=== PATIENT | female | born 1960 | race Caucasian/White ===

== ENCOUNTER 2025-07-15 10:46 | Emergency (ER) | payer SELFPAY ==
[2025-07-15 10:52] VITALS: BP 216/117; PULSE 125; RESP 16; TEMP 36.8; O2SAT 96
--- NOTE | 2025-07-15 11:15 | DI.RAD_ITS ---
Exam(s) XR KNEE RT 3V AP,LAT,SNEHAL EXAM: XR KNEE RT 3V AP,LAT,SNEHAL CLINICAL HISTORY: pain and swelling. TECHNIQUE: 2D digital imaging was performed of the right knee. Three views obtained. AP, lateral and PA tunnel views were obtained. COMPARISON: No exams were available for comparison FINDINGS: BONES: No acute fracture is present. No bony destructive lesion is seen. JOINTS: In the medial joint compartment, there is joint space narrowing and large osteophytes. There also large osteophytes and joint space narrowing in the patellofemoral joint. There is a small osteophyte seen at the lateral aspect of the tibial plateau. There is a moderate joint effusion present. SOFT TISSUE: Normal. IMPRESSION: 1. Moderate joint effusion. 2. Marked osteoarthritis of the knee. 3. There is no acute fracture or dislocation. DATA REPOSITORY: RADIATION DOSE DELIVERED:
[2025-07-15 11:53] VITALS: BP 227/112; PULSE 132; RESP 22; O2SAT 99
[2025-07-15 12:39] VITALS: BP 225/126; PULSE 119; RESP 22; O2SAT 100
--- NOTE | 2025-07-17 11:37 | ED.GENADUL_ITS ---
Discharge Plan Disposition Patient Disposition: Home Condition: Stable Discharge Details Clinical Impression: Effusion of knee, Arthritis, Alcohol withdrawal Primary Care Provider: None,None ED Provider: Nini Ryder Home Meds and New Rx's Prescriptions: New thiamine HCl (vitamin B1) 250 mg tablet 250 mg PO DAILY Qty: 90 0RF diclofenac sodium 1 % gel 2 g topical QID Qty: 100 0RF Rx Instructions: apply to single elbow, wrist or hand; for hand includes palm/fingers/back of hand prednisone 20 mg tablet 40 mg PO DAILY Qty: 10 0RF Discharge Instructions Instructions: Alcohol withdrawal, Swollen Joints (DC) Additional Instructions: Please take the prednisone as prescribed You may apply diclofenac gel I am concerned that you may be in alcohol withdrawal, I do recommend having a drink or you will need to take medicine so you do not go into delirium tremens If you are interested in cutting down on alcohol I recommend cutting down by 1 drink daily, do not ever stop drinking alcohol abruptly as this can kill you I recommend taking thiamine daily I recommend establishing with a primary care physician so that you can have regular care I am listing [facility] if you are interested in resources Referrals: [facility] [Outside] Discharge Data Discharge Date/Time-TO BE ENTERED AT DEPARTURE: 07/15/25 12:42 HPI General Date/Time Provider Initiated Documentation: 07/15/25 11:04 . HPI Narrative: This 64-year-old female presents for right knee pain. She has no primary care nor has she been seen by the healthcare provider for the last 20 years. She is states she drinks a couple times a week . Triage mention that blood pressure and heart rate were quite high.asked her regarding blood pressure history and alcohol history and she states she not have anything she would like to discuss. Denies any chest pain headache vision change. States she has a tremor and difficulty walking at times. Denies any hallucinations. Presents with daughter. Related Data Home Medications ?Medication ?Instructions ?Recorded ?Confirmed diclofenac sodium 1 % topical gel 2 g topical QID #100 grams 07/15/25 prednisone 20 mg tablet 40 mg (2 x 20 mg) PO DAILY # 10 tabs 07/15/25 thiamine HCl (vitamin B1) 250 mg 250 mg PO DAILY #90 t abs 07/15/25 tablet Previous Rx's ?Medication ?Instructions ?Recorded diclofenac sodium 1 % topical gel 2 g topical QID #100 grams 07/15/25 prednisone 20 mg tablet 40 mg (2 x 20 mg) PO DAILY # 10 tabs 07/15/25 thiamine HCl (vitamin B1) 250 mg 250 mg PO DAILY #90 t abs 07/15/25 tablet Allergies Allergy/AdvReac Type Severity Reaction Status Date / Time No Known Allergies Allergy Unverified 07/15/25 10:59 General Stated Complaint: Orthopedic CANDACE: 4 Exam Narrative Exam Narrative: Alert, oriented, tremulous continuous, tongue fasciculations flat, lungs clear to auscultation, sinus tachycardia no abdominal tenderness no diaphoresis, agitated, right knee tender with effusion, no erythema Course Vital Signs Vital signs: Vital Signs Temperature 36.8 C 07/15/25 10:52 Pulse 125 H 07/15/25 10:52 Respiratory Rate 16 07/15/25 10:52 Blood Pressure 216/117 H 07/15/25 10:52 Pulse Oximetry 96 07/15/25 10:52 Temperature 36.8 C 07/15/25 10:52 Temperature Source Oral 07/15/25 10:52 Pulse 119 H 07/15/25 12:39 Respiratory Rate 22 07/15/25 12:39 Blood Pressure 225/126 H 07/15/25 12:39 Blood Pressure Mean 150 07/15/25 11:53 Blood Pressure Position Sitting 07/15/25 10:52 Pulse Oximetry 100 07/15/25 12:39 Oxygen Delivery Method Room Air 07/15/25 11:53 Oxygen Flow Rate 0 07/15/25 11:53 Pain Level 8 07/15/25 10:52 Medical Decision Making results: right knee xray with effusion and degenerative changes Assessment and plan. Patient has a very concerning exam likely consistent with acute alcohol withdrawal although patient is very elusive about her alcohol use and states that she is not in alcohol withdrawal. I did recommend blood work EKG telemetry monitoring which patient has declined. She states I am just here for my knee. When patient went to x-ray I spoke with her daughter and daughter states patient has a longstanding history of alcoholism she lives alone but they are trying to sell the house and have her live with patient's son. She states she is unsure as to how much patient drinks. Patient is alert, oriented, of decisional capacity and unfortunately at this time I cannot force her to stay in the hospital, receive medications, or have any additional testing. I did relay the results of her x-ray and placed her on prednisone for pain and referred her to orthopedics however she has made aware that nobody will likely intervene on this knee while she has been primary care physician and a full health assessment. Out of concern for acute alcohol withdrawal in a very ill person, I did recommend if she is unwilling to take medications for withdrawal to consume her typical daily alcohol. Her daughter is aware that she must either have medicine or alcohol within the next hour or 2. I am very concerned about this patient she is leaving against medical recommendation. She has been offered a splint for her discomfort and Decadron. They are aware that we would like to do additional assessment and likely admission to this hospital however patient has declined. She is discharged in the care of her daughter who is fully alert and oriented of decisional capacity. There is no evidence of septic joint on this assessment PFS All Active Problems (Updated 07/15/25 @ 12:22 by CRISTELA Mendoza) Alcohol withdrawal (Acute) Arthritis (Acute) Effusion of knee (Acute) Social History Smoking/Tobacco Use Status: Former Tobacco Use Smoking risk assessment performed?: Yes Alcohol Intake: current Alcohol Intake frequency: 3 or more drinks per day Alcohol type: beer Drug use: Occasionally Substance use type: marijuana Housing: house [facility] Have you Been Recently Intoxicated or Drunk Within the Last 30 days?: No Have you Ever Experienced Previous Episodes of Alcohol Withdrawal?: No Have you ever Experienced Withdrawal Seizures?: No Have you ever Experienced Delirium Tremens(DT)s?: No Have you ever undergone Alcohol Rehabilitation Treatment (i.e, inpt ot outpatient treatment programs)?: Unable to Obtain Have you ever Experienced Blackouts?: No Have you ever Combined Alcohol with other Downers within the last 90 days?: No Have you ever Combined Alcohol with any other Substance of Abuse during the last 90 days?: No Positive Blood Alcohol level on Presentation? [PCS.BAL]: Unable to Obtain Evidence of Increased Autonomic Activity (i.e. HR>120, tremor, sweating, agitation, nausea)?: Yes Result: 1
== END 2025-07-15 12:42 | disposition home or self-care (01) ==
PROVIDERS: Emergency Provider Physician Assistant
DX: M25.461 Effusion, right knee (principal); F10.939 Alcohol use, unspecified with withdrawal, unspecified; M17.11 Unilateral primary osteoarthritis, right knee; Z53.20 Procedure and treatment not carried out because of patient's decision for unspecified reasons
CPT/HCPCS: 99284; 99283; 73562